=== PATIENT | female | born 1955 | race Caucasian/White ===

== ENCOUNTER 2024-06-03 11:55 | Emergency (ER) | payer MEDICARE ==
[2024-06-03 12:01] VITALS: RESP 20; TEMP 97.8
[2024-06-03 13:18] LABS: Basophils # (A) 0.05 10*3/uL (0.00-0.10); Basophils % (A) 1.1 %; Eosinophils # (A) 0.14 10*3/uL (0.04-0.35); HCT 43.3 % (37.2-46.3); HGB 14.8 g/dL (12.0-15.0); Lymphocytes # (A) 0.86 10*3/uL (0.90-5.00); Lymphocytes % (A) 18.4 %; MCH 30.7 pg (27.0-32.0); MCHC 34.2 g/dL (32.0-37.0); MCV 89.8 fL (80.0-97.0); Mean Platelet Volume 10.4 fL (9.5-12.2); Monocytes # (A) 0.33 10*3/uL (0.20-1.00); Monocytes % (A) 7.1 %; Neutrophils # (A) 3.25 10*3/uL (1.80-7.70); Neutrophils % (A) 69.5 %; Platelet Count 180 10*3/uL (140-440); RBC 4.82 10*6/uL (4.10-5.20); RDW 12.4 % (11.5-14.5); WBC 4.67 10*3/uL (4.50-10.00)
[2024-06-03 13:23] LABS: ALT 16 U/L (4-34); AST 25 U/L (14-36); African American GFR (CKD) 89 (>60 ml/min/1.73 sqM); Albumin 4.6 g/dL (3.5-5.0); Alkaline Phosphatase 47 U/L (38-126); Anion Gap 8 mmol/L; Blood Urea Nitrogen 17 mg/dL (7-17); Calcium 9.9 mg/dL (8.4-10.2); Carbon Dioxide 28 mmol/L (22-30); Chloride 105 mmol/L (98-107); Glucose 98 mg/dL (74-99); Magnesium 2.1 mg/dL (1.6-2.3); Non-African American GFR(CKD) 77 (>60 ml/min/1.73 sqM); Potassium 4.2 mmol/L (3.5-5.1); Sodium 141 mmol/L (137-145); Total Bilirubin 0.8 mg/dL (0.2-1.3); Total Protein 7.3 g/dL (6.3-8.2)
--- NOTE | 2024-06-03 13:25 | XR ---
EXAMINATION TYPE: XR chest 2V DATE OF EXAM: 06/03/2024 1:17 PM COMPARISON: None TECHNIQUE: XR chest 2V Frontal and lateral views of the chest. CLINICAL INDICATION:Female, 68 years old with history of Chest Pain; FINDINGS: Lungs/Pleura: Hyperinflation. No evidence of pneumothorax, pleural effusion or focal consolidation. B iapical pleural thickening. Pulmonary vascularity: Unremarkable. Heart/mediastinum: Cardiomediastinal silhouette is unremarkable. Musculoskeletal: No acute osseous pathology. IMPRESSION: 1. No acute cardiopulmonary disease process. 2. COPD changes. [facility], , 06/03/2024 1:22 PM
[2024-06-03 13:42] LABS: Partial Thromboplastin Time 24.4 sec (22.0-30.0); Prothrombin Time 10.6 sec (10.0-12.5)
--- NOTE | 2024-06-03 15:11 | ED ---
Chest Pain HPI - General Source: patient Mode of arrival: ambulatory Limitations: no limitations <SchmidtRoxane - Last Filed: 06/03/24 15:31> <Sreedhar Escobedo - Last Filed: 06/04/24 20:36> - General Chief Complaint: Chest Pain Stated Complaint: Chest Pain Time Seen by Provider: 06/03/24 12:02 - History of Present Illness Initial Comments: 68-year-old female with no significant past medical history presenting to the ER for right-sided chest pain which started yesterday. Patient reports that pain as sharp and intermittent. Denies any radiation denies any shortness of breath. Denies any abdominal pain, urinary or bowel complaints. Denies any cardiac history or use of blood thinners. Denies any history of heart attacks or strokes. (Roxane Schmidt) - Related Data Allergies Allergy/AdvReac Type Severity Reaction Status Date / Time Sulfa (Sulfonamide Allergy Rash/Hives Verified 06/03/24 12:01 Antibiotics) Review of Systems ROS Other: All systems not noted in ROS Statement are negative. Constitutional: Denies: fever, chills Respiratory: Denies: cough, dyspnea Cardiovascular: Reports: chest pain. Denies: palpitations Gastrointestinal: Denies: abdominal pain, nausea, vomiting Genitourinary: Denies: urgency, dysuria Musculoskeletal: Denies: back pain Skin: Denies: rash, lesions Neurological: Denies: headache, weakness <BrayanRoxane - Last Filed: 06/03/24 15:31> ROS Other: All systems not noted in ROS Statement are negative. <Sreedhar Escobedo - Last Filed: 06/04/24 20:36> ROS Statement: Those systems with pertinent positive or pertinent negative responses have been documented in the HPI. Past Medical History Past Medical History: No Reported History History of Any Multi-Drug Resistant Organisms: None Reported Past Surgical History: Appendectomy, Orthopedic Surgery Additional Past Surgical History / Comment(s): Bowel obstruction. Past Psychological History: No Psychological Hx Reported Smoking Status: Never smoker Past Alcohol Use History: Rare Past Drug Use History: None Reported <Roxane Schmidt - Last Filed: 06/03/24 15:31> General Exam Limitations: no limitations General appearance: alert, in no apparent distress <Roxane Schmidt - Last Filed: 06/03/24 15:31> Course Vital Signs 06/03/24 06/03/24 06/03/24 11:59 13:20 14:33 Temperature 97.8 F Pulse Rate 73 72 86 Respiratory 20 20 20 Rate Blood Pressure 145/75 114/60 113/67 O2 Sat by Pulse 99 97 99 Oximetry 06/03/24 15:30 Temperature Pulse Rate 76 Respiratory 20 Rate Blood Pressure 121/64 O2 Sat by Pulse 96 Oximetry Chest Pain MDM <SchmidtRoxane - Last Filed: 06/03/24 15:31> <Sreedhar Escobedo - Last Filed: 06/04/24 20:36> - MDM Was pt. sent in by a medical professional or institution (DANNY Laboy, [employer], urgent care, hospital, or alf...) When possible be specific @ -No Did you speak to anyone other than the patient for history (EMS, parent, family, police, friend...)? What history was obtained from this source @ -No Did you review nursing and triage notes (agree or disagree)? Why? @ -I reviewed and agree with nursing and triage notes Were old charts reviewed (outside hosp., previous admission, EMS record, old EKG, old radiological studies, urgent care reports/EKG's, alf records)? Report findings @ -No old charts were reviewed Differential Diagnosis? @ -Differential Chest Pain: Stable Angina, Unstable Angina, STEMI, NSTEMI Aortic Dissection, Pneumothorax, Musculoskeletal, Esophageal Spasm GERD, Cholecystitis, Pancreatitis, Zoster, this is not meant to be an all-inclusive list. EKG interpreted by me (3pts min.). @ -EKG shows sinus rhythm, ventricular rate of 71 bpm, QTc of 412, no acute ST wave changes suggestive of ischemia. X-rays interpreted by me (1pt min.). @ -Chest x-ray unremarkable CT interpreted by me (1pt min.). @ -None done U/S interpreted by me (1pt. min.). @ -None done What testing was considered but not performed or refused? (CT, X-rays, U/S, labs)? Why? @ -None What meds were considered but not given or refused? Why? @ -None Did you discuss the management of the patient with other professionals (professionals i.e. Dr., PA, [employer], lab, RT, psych nurse, psych social worker, cisco administrator, teacher, space operations officer, case planner)? Give summary @ -Case was discussed with ER attending Dr. Escobedo Was smoking cessation discussed for >3mins.? @ -No Was critical care preformed (if so, how long)? @ -No Were there social determinants of health that impacted care today? How? (Homelessness, low income, unemployed, alcoholism, drug addiction, transportation, low edu. Level, literacy, decrease access to med. care, prison, rehab)? @ -No Was there de-escalation of care discussed even if they declined (Discuss DNR or withdrawal of care, Hospice)? DNR status @ -No What co-morbidities impacted this encounter? (DM, HTN, Smoking, COPD, CAD, Cancer, CVA, ARF, Chemo, Hep., AIDS, mental health diagnosis, sleep apnea, morbid obesity)? @ -None Was patient admitted / discharged? Hospital course, mention meds given and route, prescriptions, significant lab abnormalities, going to OR and other pertinent info. @ -Labs were unremarkable. D-dimer and troponin were negative. EKG was unremarkable. Chest x-ray was unremarkable. Patient will be discharged home with self-care. Patient to follow-up with PCP in 1 to 2 days. Recommended mammogram. Undiagnosed new problem with uncertain prognosis? @ -No Drug Therapy requiring intensive monitoring for toxicity (Heparin, Nitro, Insulin, Cardizem)? @ -No Were any procedures done? @ -No Diagnosis/symptom? @ -Atypical chest pain Acute, or Chronic, or Acute on Chronic? @ -Acute Uncomplicated (without systemic symptoms) or Complicated (systemic symptoms)? @ -Default Side effects of treatment? @ -No Exacerbation, Progression, or Severe Exacerbation? @ -No Poses a threat to life or bodily function? How? (Chest pain, [place], [place], pneumonia, PE, COPD, DKA, ARF, appy, cholecystitis, CVA, Diverticulitis, Homicidal, Suicidal, threat to staff... and all critical care pts) @ -No (Roxane Schmidt) I personally saw the patient and performed the critical portion of the service. I discussed the patient care with the resident. I directed management, care planning and final disposition of the patient. This includes, but not limited to, review of all lab work, radiological studies, EKG's, consultations, vital signs, and nursing notes. EKG interpreted by me (3pts min.) @ [EKG shows sinus rhythm, ventricular rate of 71 bpm, QTc of 412, no acute ST wave changes suggestive of ischemia. X-Rays interpreted by me (1 pt min.) @Chest x-ray negative for acute cardiopulmonary findings CT interpreted by me ( 1pt min.) @None U/S interpreted by me (1 pt min.) @None Critical care time of 0 minutes excluding separately billable procedures was spent in conjunction with critical care activities provided by the Resident and Attending simultaneously. I was present during no procedures for all critical portions of the procedure and as immediately available to furnish service during the entire procedure. (Sreedhar Escobedo) Disposition Is patient prescribed a controlled substance at d/c from ED?: No Time of Disposition: 15:00 <Roxane Schmidt - Last Filed: 06/03/24 15:31> <Sreedhar Escobedo - Last Filed: 06/04/24 20:36> Clinical Impression: Atypical chest pain Disposition: HOME SELF-CARE Additional Instructions: Every disease is a spectrum and a small chance still exists that a serious condition could develop, for this reason, please monitor yourself closely for new, changing or worsening symptoms, symptoms that persist beyond 48 hours, any further episodes of vomiting blood, difficulty in breathing, severe abdominal pain, symptoms that did not improve in the next 48 hours, black or bloody stools, fever, inability to tolerate/keep down fluids or your medications, inability to follow up with outpatient providers as instructed and should you experience these symptoms or should you have any further concerns for your wellbeing please return to the ED or call 911 immediately. PLEASE take prescriptions as listed in discharge instructions. PLEASE call your primary care physician as soon as possible to arrange / discuss plan for followup appointment. Appointment in the next 1-3 days is strongly encouraged if possible. STRONGLY RECOMMEND mammogram for further evaluation. PLEASE let us know here before you leave if there is anything further we can do to be of any assistance. Take care and feel Better! Referrals: Vickey Leija MD [Primary Care Provider] - 1-2 days
[2024-06-03 15:35] VITALS: BP 121/64; PULSE 76
== END 2024-06-03 15:39 | disposition home or self-care (01) ==
LOC: EC 11:55
DX: R07.89 Other chest pain (principal); Z88.2 Allergy status to sulfonamides
CPT/HCPCS: 36415; 71046; 80053; 83735; 84484; 85025; 85379; 85610; 85730; 93005; 99285